=== PATIENT | male | born 1945 | race Caucasian/White ===

== ENCOUNTER 2018-07-19 15:40 | Inpatient (IN) | payer MEDICARE, OTHER ==
[2018-07-19 16:31] LABS: ADD MAN DIFF? NO
[2018-07-19 16:33] LABS: ABNORMAL IP MESSAGE 1; BASOPHILS % 0.5 % (0.0-2.0); EOSINOPHILS # 0.1 10^3/ul (0.0-0.5); EOSINOPHILS % 1.9 % (0.0-7.0); HEMATOCRIT 39.8 % (42.0-52.0); HEMOGLOBIN 12.8 g/dl (14.0-18.0); LYMPHOCYTES # 0.5 10^3/ul (0.8-2.9); LYMPHOCYTES % 9.3 % (15.0-51.0); MEAN CORPUSCULAR HEMOGLOBIN 30.3 pg (29.0-33.0); MEAN CORPUSCULAR HGB CONC 32.2 g/dl (32.0-37.0); MEAN CORPUSCULAR VOLUME 94.3 fl (82.0-101.0); MEAN PLATELET VOLUME 10.7 fl (7.4-10.4); MONOCYTE # 0.3 10^3/ul (0.3-0.9); MONOCYTES % 5.9 % (0.0-11.0); NEUTROPHIL # 4.7 10^3/ul (1.6-7.5); NEUTROPHILS % 81.9 % (39.0-77.0); PLATELET COUNT 285 10^3/UL (140-415); POSITIVE DIFF @See below; RED BLOOD COUNT 4.22 10^6/ul (4.70-6.10); RED CELL DISTRIBUTION WIDTH 13.6 % (11.5-14.5)
[2018-07-19 16:33] LABS: WHITE BLOOD COUNT 5.8 10^3/ul (4.8-10.8)
[2018-07-19] MEDS: IPRATROPIUM (NEB) 0.5 MG/2.5 ML AMP NEB (16:43)
[2018-07-19] MEDS: ALBUTEROL 0.083% (NEB) 2.5 MG/3 ML AMP NEB (16:44)
[2018-07-19 16:51] LABS: ANION GAP 14 (5-13); BLOOD UREA NITROGEN 38 mg/dl (7-20); CARBON DIOXIDE 24 mmol/L (21-31); CHLORIDE 106 mmol/L (97-110); CREATININE 1.78 mg/dl (0.61-1.24); GLUCOSE 96 mg/dl (70-220); POTASSIUM 4.8 mmol/L (3.5-5.1); SODIUM 144 mmol/L (135-144)
[2018-07-19 16:52] LABS: ALANINE AMINOTRANSFERASE 75 IU/L (13-69); ALBUMIN 4.3 g/dl (3.3-4.9); ALBUMIN/GLOBULIN RATIO 1.79; ALKALINE PHOSPHATASE 74 IU/L (42-121); ASPARTATE AMINO TRANSFERASE 55 IU/L (15-46); BILIRUBIN,INDIRECT 0.4 mg/dl (0-1.1); BILIRUBIN,TOTAL 0.4 mg/dl (0.2-1.3); CALCIUM 8.8 mg/dl (8.4-10.2); CREATINE KINASE 57 IU/L (23-200); TOTAL PROTEIN 6.7 g/dl (6.1-8.1)
[2018-07-19 16:56] LABS: INR 1.09; PROTIME 14.3 Sec (11.9-14.9); PT RATIO 1.1
[2018-07-19 16:57] LABS: PARTIAL THROMBOPLASTIN TIME 32.2 Sec (23.0-35.0)
[2018-07-19 17:04] LABS: B-TYPE NATRIURETIC PEPTIDE 5720 PG/ML (0-125); CK INDEX 3.8; CK-MB 2.15 ng/ml (0.0-2.4); TROPONIN-I 0.032 ng/ml (0.000-0.120)
[2018-07-19] MEDS: SOD CHLORIDE 0.9% 100 ML (17:46)
[2018-07-19] MEDS: IODIXANOL LOCM 100 ML BTL (17:47)
[2018-07-19 18:40] LABS: AMYLASE 88 U/L (11-123)
[2018-07-19 18:40] LABS: LIPASE 164 U/L (23-300)
[2018-07-19] MEDS: SOD CHLORIDE 0.9% 500 ML IV (18:56)
[2018-07-19] MEDS ORDERED: ONDANSETRON 4 MG INJ IV ×2 (19:00→19:30)
[2018-07-19] MEDS ORDERED: ACETAMINOPHEN 325 MG TAB PO ×2 (19:00→19:30)
[2018-07-19] MEDS ORDERED: HYDROCODONE/APAP (5/325) TAB PO ×2 (19:30)
[2018-07-19] MEDS ORDERED: DOCUSATE SODIUM 100 MG CAP PO (19:30)
[2018-07-19] MEDS ORDERED: NA PHOSPHATE/BIPHOS 133 ML ENEMA PR (19:30)
[2018-07-19] MEDS ORDERED: NITROGLYCERIN (SL) 0.4 MG TAB SL (19:30)
[2018-07-19] MEDS ORDERED: BISACODYL (EC) 5 MG TAB PO (19:30)
[2018-07-19] MEDS ORDERED: LORAZEPAM 0.5 MG TAB PO (19:30)
[2018-07-19] MEDS ORDERED: NACL 0.9% 3 ML SYG IV (19:30)
[2018-07-19] MEDS ORDERED: LEVALBUTEROL (HFA) 15 GM INHALER INH (20:00)
[2018-07-19] MEDS ORDERED: GLUCOSE GEL 15 GRAM TUBE BUCCAL (20:30)
[2018-07-19] MEDS ORDERED: GLUCOSE GEL 15 GRAM TUBE PO ×2 (20:30)
[2018-07-19] MEDS ORDERED: GLUCAGON 1 MG INJ IM (20:30)
[2018-07-19] MEDS ORDERED: DEXTROSE 50% 50 ML SYRINGE IV ×2 (20:30)
[2018-07-19] MEDS: IVABRADINE HCL 5 MG TABLET PO (21:00)
[2018-07-19] MEDS: INSULIN ASPART [NOVOLOG] 3 ML PEN SC (21:00)
[2018-07-19] MEDS: HEPARIN 5,000 UNIT/1 ML VIAL SC (22:04)
[2018-07-19] MEDS: EZETIMIBE 10 MG TAB PO (22:19)
[2018-07-19] MEDS: INSULIN GLARGINE [LANTus] (100 UNITS/ML) SYG SC (22:19)
[2018-07-19] MEDS: ACETYLCYSTEINE 600 MG CAP PO (22:50)
[2018-07-19] MEDS: FUROSEMIDE 20 MG INJ IV (22:50)
[2018-07-19] MEDS: morphine 2 MG INJ IV (23:28)
[2018-07-20] MEDS: ZOLPIDEM 5 MG TAB PO ×2 (01:16→21:45)
[2018-07-20 06:02] LABS: ADD MAN DIFF? NO
[2018-07-20 06:10] LABS: BASOPHILS % 0.4 % (0.0-2.0); EOSINOPHILS # 0.1 10^3/ul (0.0-0.5); EOSINOPHILS % 2.4 % (0.0-7.0); HEMATOCRIT 37.9 % (42.0-52.0); HEMOGLOBIN 11.8 g/dl (14.0-18.0); LYMPHOCYTES % 20.7 % (15.0-51.0); MEAN CORPUSCULAR HEMOGLOBIN 29.2 pg (29.0-33.0); MEAN CORPUSCULAR HGB CONC 31.1 g/dl (32.0-37.0); MEAN CORPUSCULAR VOLUME 93.8 fl (82.0-101.0); MONOCYTE # 0.4 10^3/ul (0.3-0.9); MONOCYTES % 8.4 % (0.0-11.0); NEUTROPHIL # 3.1 10^3/ul (1.6-7.5); NEUTROPHILS % 67.5 % (39.0-77.0); PLATELET COUNT 262 10^3/UL (140-415); RED BLOOD COUNT 4.04 10^6/ul (4.70-6.10); RED CELL DISTRIBUTION WIDTH 13.8 % (11.5-14.5)
[2018-07-20 06:10] LABS: WHITE BLOOD COUNT 4.6 10^3/ul (4.8-10.8)
[2018-07-20 06:33] LABS: CREATINE KINASE 30 IU/L (23-200)
[2018-07-20 06:43] LABS: B-TYPE NATRIURETIC PEPTIDE 4430 PG/ML (0-125)
[2018-07-20 06:45] LABS: ALANINE AMINOTRANSFERASE 68 IU/L (13-69); ALBUMIN 3.7 g/dl (3.3-4.9); ALBUMIN/GLOBULIN RATIO 1.54; ALKALINE PHOSPHATASE 64 IU/L (42-121); ANION GAP 12 (5-13); ASPARTATE AMINO TRANSFERASE 36 IU/L (15-46); BILIRUBIN,INDIRECT 0.4 mg/dl (0-1.1); BILIRUBIN,TOTAL 0.4 mg/dl (0.2-1.3); BLOOD UREA NITROGEN 38 mg/dl (7-20); CALCIUM 8.8 mg/dl (8.4-10.2); CARBON DIOXIDE 26 mmol/L (21-31); CHLORIDE 104 mmol/L (97-110); CHOL/HDL RATIO 3.6 RATIO; CHOLESTEROL 117 mg/dl (100-200); CK INDEX 4.1; CK-MB 1.23 ng/ml (0.0-2.4); CREATININE 2.02 mg/dl (0.61-1.24); GLUCOSE 99 mg/dl (70-220); HDL CHOLESTEROL 32 mg/dl (31-75); LDL CHOLESTEROL,CALCULATED 72 mg/dl; POTASSIUM 4.9 mmol/L (3.5-5.1); SODIUM 142 mmol/L (135-144); TOTAL PROTEIN 6.1 g/dl (6.1-8.1); TRIGLYCERIDES 65 mg/dl (0-149); TROPONIN-I 0.036 ng/ml (0.000-0.120)
[2018-07-20 06:52] LABS: FREE T4 (FREE THYROXINE) 1.42 ng/dl (0.78-2.44)
[2018-07-20 06:54] LABS: MAGNESIUM 2.1 mg/dl (1.7-2.5)
[2018-07-20 07:46] LABS: HEMOGLOBIN A1C 6.3 % (0-5.9)
[2018-07-20] MEDS: INSULIN ASPART [NOVOLOG] 3 ML PEN SC ×4 (07:52→21:00)
[2018-07-20] MEDS: NATEGLINIDE 120 MG TAB PO ×3 (08:22→17:28)
[2018-07-20] MEDS: AMIODARONE 200 MG TAB PO (08:24)
[2018-07-20] MEDS: CLOPIDOGREL 75 MG TAB PO (08:29)
[2018-07-20] MEDS: IVABRADINE HCL 5 MG TABLET PO ×2 (08:29→21:04)
[2018-07-20] MEDS: ASPIRIN (EC) 81 MG TAB PO (08:29)
[2018-07-20] MEDS: ALLOPURINOL 100 MG TAB PO (08:31)
[2018-07-20] MEDS: FINASTERIDE 5 MG TAB PO (08:32)
[2018-07-20] MEDS: ACETYLCYSTEINE 600 MG CAP PO ×2 (08:33→21:04)
[2018-07-20] MEDS: HEPARIN 5,000 UNIT/1 ML VIAL SC ×2 (08:43→21:06)
[2018-07-20 14:01] LABS: ADD UMIC NO; UR ASCORBIC ACID NEGATIVE (NEGATIVE); UR BILIRUBIN (Dip) NEGATIVE (NEGATIVE); UR BLOOD (Dip) NEGATIVE (NEGATIVE); UR CLARITY CLEAR (CLEAR); UR COLOR YELLOW (YELLOW); UR GLUCOSE (Dip) 3+ mg/dL (NEGATIVE); UR KETONES (Dip) NEGATIVE (NEGATIVE); UR LEUKOCYTE ESTERASE (Dip) NEGATIVE Leu/ul (NEGATIVE); UR NITRITE (Dip) NEGATIVE (NEGATIVE); UR SPECIFIC GRAVITY (Dip) 1.027 (1.003-1.030); UR TOTAL PROTEIN (Dip) NEGATIVE (NEGATIVE); UR UROBILINOGEN (Dip) NEGATIVE (NEGATIVE)
[2018-07-20 14:42] LABS: CREATININE,URINE RANDOM 103.83 mg/dl (20-370)
[2018-07-20 14:42] LABS: SODIUM,URINE RANDOM 80 mmol/L (30-90)
[2018-07-20] MEDS ORDERED: TAMSULOSIN (SR) 0.4 MG CAP PO (18:55)
[2018-07-20] MEDS: EZETIMIBE 10 MG TAB PO (21:05)
[2018-07-20] MEDS: INSULIN GLARGINE [LANTus] (100 UNITS/ML) SYG SC (21:06)
[2018-07-21] MEDS: INSULIN ASPART [NOVOLOG] 3 ML PEN SC ×4 (07:55→20:37)
[2018-07-21] MEDS: IVABRADINE HCL 5 MG TABLET PO ×2 (08:49→21:21)
[2018-07-21] MEDS: ASPIRIN (EC) 81 MG TAB PO (08:50)
[2018-07-21] MEDS: NATEGLINIDE 120 MG TAB PO ×3 (08:51→17:25)
[2018-07-21] MEDS: CLOPIDOGREL 75 MG TAB PO (08:51)
[2018-07-21] MEDS: FINASTERIDE 5 MG TAB PO (08:52)
[2018-07-21] MEDS: ALLOPURINOL 100 MG TAB PO (08:53)
[2018-07-21] MEDS: AMIODARONE 200 MG TAB PO (08:53)
[2018-07-21] MEDS: HEPARIN 5,000 UNIT/1 ML VIAL SC ×2 (09:13→20:18)
[2018-07-21 12:15] LABS: MAGNESIUM 2.2 mg/dl (1.7-2.5)
[2018-07-21 12:15] LABS: PHOSPHORUS 5.1 mg/dl (2.5-4.9)
[2018-07-21 12:26] LABS: ANION GAP 15 (5-13); BLOOD UREA NITROGEN 36 mg/dl (7-20); CALCIUM 8.9 mg/dl (8.4-10.2); CARBON DIOXIDE 21 mmol/L (21-31); CHLORIDE 106 mmol/L (97-110); CREATININE 1.86 mg/dl (0.61-1.24); GLUCOSE 88 mg/dl (70-220); POTASSIUM 4.7 mmol/L (3.5-5.1); SODIUM 142 mmol/L (135-144)
[2018-07-21 12:34] LABS: B-TYPE NATRIURETIC PEPTIDE 2450 PG/ML (0-125)
[2018-07-21] MEDS: ZOLPIDEM 5 MG TAB PO (20:15)
[2018-07-21] MEDS: EZETIMIBE 10 MG TAB PO (20:16)
[2018-07-21] MEDS: INSULIN GLARGINE [LANTus] (100 UNITS/ML) SYG SC ×2 (20:37→22:37)
[2018-07-22 05:58] LABS: ADD MAN DIFF? NO
[2018-07-22 06:13] LABS: BASOPHILS % 0.4 % (0.0-2.0); EOSINOPHILS # 0.2 10^3/ul (0.0-0.5); EOSINOPHILS % 3.1 % (0.0-7.0); HEMATOCRIT 38.6 % (42.0-52.0); HEMOGLOBIN 11.9 g/dl (14.0-18.0); LYMPHOCYTES % 20.2 % (15.0-51.0); MEAN CORPUSCULAR HEMOGLOBIN 29.7 pg (29.0-33.0); MEAN CORPUSCULAR HGB CONC 30.8 g/dl (32.0-37.0); MEAN CORPUSCULAR VOLUME 96.3 fl (82.0-101.0); MEAN PLATELET VOLUME 10.9 fl (7.4-10.4); MONOCYTE # 0.6 10^3/ul (0.3-0.9); MONOCYTES % 10.9 % (0.0-11.0); NEUTROPHIL # 3.3 10^3/ul (1.6-7.5); NEUTROPHILS % 64.6 % (39.0-77.0); PLATELET COUNT 256 10^3/UL (140-415); RED BLOOD COUNT 4.01 10^6/ul (4.70-6.10); RED CELL DISTRIBUTION WIDTH 13.7 % (11.5-14.5)
[2018-07-22 06:13] LABS: WHITE BLOOD COUNT 5.2 10^3/ul (4.8-10.8)
[2018-07-22 06:45] LABS: ANION GAP 11 (5-13); BLOOD UREA NITROGEN 32 mg/dl (7-20); CALCIUM 8.7 mg/dl (8.4-10.2); CARBON DIOXIDE 24 mmol/L (21-31); CHLORIDE 106 mmol/L (97-110); GLUCOSE 99 mg/dl (70-220); MAGNESIUM 2.3 mg/dl (1.7-2.5); PHOSPHORUS 4.8 mg/dl (2.5-4.9); POTASSIUM 5.3 mmol/L (3.5-5.1); SODIUM 141 mmol/L (135-144)
[2018-07-22] MEDS: INSULIN ASPART [NOVOLOG] 3 ML PEN SC ×2 (07:55→11:50)
[2018-07-22] MEDS: CLOPIDOGREL 75 MG TAB PO (08:27)
[2018-07-22] MEDS: FINASTERIDE 5 MG TAB PO (08:27)
[2018-07-22] MEDS: NATEGLINIDE 120 MG TAB PO ×2 (08:28→11:20)
[2018-07-22] MEDS: ALLOPURINOL 100 MG TAB PO (08:28)
[2018-07-22] MEDS: IVABRADINE HCL 5 MG TABLET PO (08:28)
[2018-07-22] MEDS: ASPIRIN (EC) 81 MG TAB PO (08:28)
[2018-07-22] MEDS: AMIODARONE 200 MG TAB PO (08:28)
[2018-07-22] MEDS: HEPARIN 5,000 UNIT/1 ML VIAL SC (08:34)
[2018-07-22] MEDS: FUROSEMIDE 20 MG TAB PO (10:54)
[2018-07-22] MEDS ORDERED: FUROSEMIDE 20 MG TAB PO (11:00)
[2018-07-22 11:19] LABS: POTASSIUM 4.5 mmol/L (3.5-5.1)
[2018-07-22] MEDS ORDERED: INSULIN GLARGINE [LANTus] (100 UNITS/ML) SYG SC (21:00)
== END 2018-07-22 15:25 | disposition home or self-care (01) | DRG 291 ==
LOC: E/R 15:40 → TEL 19:00
DX: I13.0 Hypertensive heart and chronic kidney disease with heart failure and stage 1 through stage 4 chronic kidney disease, or unspecified chronic kidney disease (principal); J96.01 Acute respiratory failure with hypoxia; K85.90 Acute pancreatitis without necrosis or infection, unspecified; I50.23 Acute on chronic systolic (congestive) heart failure; N17.9 Acute kidney failure, unspecified; Z95.0 Presence of cardiac pacemaker; Z95.810 Presence of automatic (implantable) cardiac defibrillator; Z87.891 Personal history of nicotine dependence; I25.10 Atherosclerotic heart disease of native coronary artery without angina pectoris; E78.5 Hyperlipidemia, unspecified; E11.9 Type 2 diabetes mellitus without complications; E79.0 Hyperuricemia without signs of inflammatory arthritis and tophaceous disease; Z95.5 Presence of coronary angioplasty implant and graft; Z95.3 Presence of xenogenic heart valve; N40.1 Benign prostatic hyperplasia with lower urinary tract symptoms; N18.3 Chronic kidney disease, stage 3 (moderate)
CPT/HCPCS: 71045; 71275; 80048; 80053; 80061; 81003; 82150; 82550; 82553; 82962; 83036; 83690; 83735; 83880; 84100; 84132; 84155; 84300; 84439; 84443; 84484; 85025; 85610; 85730; 87081; 93005; 94664; 99285-25; G0378

== ENCOUNTER 2018-08-05 21:44 | Observation (INO) | payer MEDICARE, OTHER ==
[2018-08-05 23:05] LABS: ADD MAN DIFF? NO
[2018-08-05 23:08] LABS: BASOPHIL # 0.1 10^3/ul (0.0-0.1); BASOPHILS % 0.8 % (0.0-2.0); EOSINOPHILS # 0.2 10^3/ul (0.0-0.5); EOSINOPHILS % 2.2 % (0.0-7.0); HEMATOCRIT 37.6 % (42.0-52.0); HEMOGLOBIN 11.8 g/dl (14.0-18.0); LYMPHOCYTES # 1.2 10^3/ul (0.8-2.9); LYMPHOCYTES % 15.7 % (15.0-51.0); MEAN CORPUSCULAR HEMOGLOBIN 29.5 pg (29.0-33.0); MEAN CORPUSCULAR HGB CONC 31.4 g/dl (32.0-37.0); MEAN PLATELET VOLUME 10.4 fl (7.4-10.4); MONOCYTE # 0.7 10^3/ul (0.3-0.9); NEUTROPHIL # 5.6 10^3/ul (1.6-7.5); NEUTROPHILS % 71.9 % (39.0-77.0); PLATELET COUNT 247 10^3/UL (140-415); RED CELL DISTRIBUTION WIDTH 13.5 % (11.5-14.5)
[2018-08-05 23:08] LABS: WHITE BLOOD COUNT 7.8 10^3/ul (4.8-10.8)
[2018-08-05 23:27] LABS: ALANINE AMINOTRANSFERASE 87 IU/L (13-69); ALBUMIN 3.9 g/dl (3.3-4.9); ALBUMIN/GLOBULIN RATIO 1.34; ALKALINE PHOSPHATASE 95 IU/L (42-121); ANION GAP 9 (5-13); ASPARTATE AMINO TRANSFERASE 84 IU/L (15-46); BILIRUBIN,INDIRECT 0.1 mg/dl (0-1.1); BILIRUBIN,TOTAL 0.1 mg/dl (0.2-1.3); BLOOD UREA NITROGEN 36 mg/dl (7-20); CALCIUM 9.1 mg/dl (8.4-10.2); CARBON DIOXIDE 21 mmol/L (21-31); CHLORIDE 108 mmol/L (97-110); CREATININE 1.62 mg/dl (0.61-1.24); GLUCOSE 87 mg/dl (70-220); INR 1.15; POTASSIUM 4.3 mmol/L (3.5-5.1); PROTIME 14.8 Sec (11.9-14.9); PT RATIO 1.2; SODIUM 138 mmol/L (135-144); TOTAL PROTEIN 6.8 g/dl (6.1-8.1)
[2018-08-05 23:38] LABS: B-TYPE NATRIURETIC PEPTIDE 5270 PG/ML (0-125); TROPONIN-I 0.024 ng/ml (0.000-0.120)
[2018-08-06] MEDS: FUROSEMIDE 20 MG INJ IV (00:23)
[2018-08-06] MEDS ORDERED: ZOLPIDEM 5 MG TAB PO (03:00)
[2018-08-06] MEDS ORDERED: NITROGLYCERIN (SL) 0.4 MG TAB SL (03:00)
[2018-08-06] MEDS ORDERED: BISACODYL (EC) 5 MG TAB PO (03:00)
[2018-08-06] MEDS ORDERED: LORAZEPAM 0.5 MG TAB PO (03:00)
[2018-08-06] MEDS ORDERED: NACL 0.9% 3 ML SYG IV (03:00)
[2018-08-06] MEDS ORDERED: ONDANSETRON 4 MG INJ IV (03:00)
[2018-08-06] MEDS ORDERED: DOCUSATE SODIUM 100 MG CAP PO (03:00)
[2018-08-06] MEDS ORDERED: GLUCAGON 1 MG INJ IM (04:00)
[2018-08-06] MEDS ORDERED: GLUCOSE GEL 15 GRAM TUBE PO ×2 (04:00)
[2018-08-06] MEDS ORDERED: DEXTROSE 50% 50 ML SYRINGE IV ×2 (04:00)
[2018-08-06] MEDS ORDERED: GLUCOSE GEL 15 GRAM TUBE BUCCAL (04:00)
[2018-08-06] MEDS: ACETAMINOPHEN 325 MG TAB PO (04:54)
[2018-08-06] MEDS: NATEGLINIDE 120 MG TAB PO ×2 (07:25→11:20)
[2018-08-06] MEDS: INSULIN ASPART [NOVOLOG] 3 ML PEN SC ×4 (07:45→21:00)
[2018-08-06] MEDS: IVABRADINE HCL 5 MG TABLET PO ×2 (07:47→18:30)
[2018-08-06] MEDS: FUROSEMIDE 20 MG TAB PO (08:10)
[2018-08-06] MEDS: ASPIRIN (EC) 81 MG TAB PO (08:10)
[2018-08-06] MEDS: FINASTERIDE 5 MG TAB PO (08:10)
[2018-08-06] MEDS: ALLOPURINOL 100 MG TAB PO (08:10)
[2018-08-06] MEDS: CLOPIDOGREL 75 MG TAB PO (08:10)
[2018-08-06] MEDS: AMIODARONE 200 MG TAB PO (08:11)
[2018-08-06] MEDS: HEPARIN 5,000 UNIT/1 ML VIAL SC ×2 (08:19→21:39)
[2018-08-06 15:25] LABS: ADD UMIC NO; UR ASCORBIC ACID NEGATIVE (NEGATIVE); UR BILIRUBIN (Dip) NEGATIVE (NEGATIVE); UR BLOOD (Dip) NEGATIVE (NEGATIVE); UR CLARITY CLEAR (CLEAR); UR COLOR STRAW (YELLOW); UR GLUCOSE (Dip) NEGATIVE (NEGATIVE); UR KETONES (Dip) NEGATIVE (NEGATIVE); UR LEUKOCYTE ESTERASE (Dip) NEGATIVE Leu/ul (NEGATIVE); UR NITRITE (Dip) NEGATIVE (NEGATIVE); UR TOTAL PROTEIN (Dip) NEGATIVE (NEGATIVE); UR UROBILINOGEN (Dip) NEGATIVE (NEGATIVE)
[2018-08-06 15:40] LABS: CREATININE,URINE RANDOM 39.17 mg/dl (20-370)
[2018-08-06 15:40] LABS: SODIUM,URINE RANDOM 139 mmol/L (30-90)
[2018-08-06] MEDS: EZETIMIBE 10 MG TAB PO (21:34)
[2018-08-06] MEDS: ZOLPIDEM 5 MG TAB PO (21:35)
[2018-08-06] MEDS: INSULIN GLARGINE [LANTus] (100 UNITS/ML) SYG SC (21:38)
[2018-08-07] MEDS: ACCU-CHEK XX (01:38)
[2018-08-07 06:02] LABS: ADD MAN DIFF? NO
[2018-08-07 06:16] LABS: BASOPHIL # 0.1 10^3/ul (0.0-0.1); BASOPHILS % 0.9 % (0.0-2.0); EOSINOPHILS # 0.2 10^3/ul (0.0-0.5); EOSINOPHILS % 3.5 % (0.0-7.0); HEMATOCRIT 40.5 % (42.0-52.0); HEMOGLOBIN 12.8 g/dl (14.0-18.0); LYMPHOCYTES # 1.4 10^3/ul (0.8-2.9); LYMPHOCYTES % 22.5 % (15.0-51.0); MEAN CORPUSCULAR HEMOGLOBIN 29.6 pg (29.0-33.0); MEAN CORPUSCULAR HGB CONC 31.6 g/dl (32.0-37.0); MEAN CORPUSCULAR VOLUME 93.8 fl (82.0-101.0); MEAN PLATELET VOLUME 10.2 fl (7.4-10.4); MONOCYTE # 0.6 10^3/ul (0.3-0.9); MONOCYTES % 9.9 % (0.0-11.0); NEUTROPHILS % 62.7 % (39.0-77.0); PLATELET COUNT 252 10^3/UL (140-415); RED BLOOD COUNT 4.32 10^6/ul (4.70-6.10); RED CELL DISTRIBUTION WIDTH 13.6 % (11.5-14.5)
[2018-08-07 06:16] LABS: WHITE BLOOD COUNT 6.4 10^3/ul (4.8-10.8)
[2018-08-07 06:20] LABS: HEMOGLOBIN A1C 6.5 % (0-5.9)
[2018-08-07 06:28] LABS: CREATINE KINASE 35 IU/L (23-200)
[2018-08-07 06:33] LABS: HDL CHOLESTEROL 35 mg/dl (31-75); LDL CHOLESTEROL,CALCULATED 89 mg/dl; TRIGLYCERIDES 88 mg/dl (0-149)
[2018-08-07 06:33] LABS: CHOLESTEROL 142 mg/dl (100-200)
[2018-08-07 06:36] LABS: ANION GAP 12 (5-13); BLOOD UREA NITROGEN 38 mg/dl (7-20); CALCIUM 9.3 mg/dl (8.4-10.2); CARBON DIOXIDE 26 mmol/L (21-31); CHLORIDE 104 mmol/L (97-110); GLUCOSE 96 mg/dl (70-220); MAGNESIUM 1.9 mg/dl (1.7-2.5); PHOSPHORUS 5.4 mg/dl (2.5-4.9); POTASSIUM 4.8 mmol/L (3.5-5.1); SODIUM 142 mmol/L (135-144)
[2018-08-07 06:40] LABS: B-TYPE NATRIURETIC PEPTIDE 2820 PG/ML (0-125); CK INDEX 4.1; CK-MB 1.44 ng/ml (0.0-2.4); TROPONIN-I 0.025 ng/ml (0.000-0.120)
[2018-08-07 06:44] LABS: FREE T4 (FREE THYROXINE) 1.36 ng/dl (0.78-2.44)
[2018-08-07] MEDS: INSULIN ASPART [NOVOLOG] 3 ML PEN SC ×2 (07:55→11:55)
[2018-08-07] MEDS: FUROSEMIDE 20 MG TAB PO (08:40)
[2018-08-07] MEDS: CLOPIDOGREL 75 MG TAB PO (08:40)
[2018-08-07] MEDS: FINASTERIDE 5 MG TAB PO (08:40)
[2018-08-07] MEDS: ASPIRIN (EC) 81 MG TAB PO (08:40)
[2018-08-07] MEDS: ALLOPURINOL 100 MG TAB PO (08:40)
[2018-08-07] MEDS: IVABRADINE HCL 5 MG TABLET PO (08:41)
[2018-08-07] MEDS: HEPARIN 5,000 UNIT/1 ML VIAL SC (08:48)
[2018-08-07 15:32] LABS: CREATININE, RANDOM URINE 39 mg/dL (20-320); MICROALBUMIN/CREATININE RATIO 26 (<30)
== END 2018-08-07 15:18 | disposition home or self-care (01) ==
LOC: TEL 23:50 → E/R 21:44
DX: I50.42 Chronic combined systolic (congestive) and diastolic (congestive) heart failure (principal); I12.9 Hypertensive chronic kidney disease with stage 1 through stage 4 chronic kidney disease, or unspecified chronic kidney disease; E11.22 Type 2 diabetes mellitus with diabetic chronic kidney disease; N18.2 Chronic kidney disease, stage 2 (mild); I25.10 Atherosclerotic heart disease of native coronary artery without angina pectoris; R00.2 Palpitations; E78.5 Hyperlipidemia, unspecified; E79.0 Hyperuricemia without signs of inflammatory arthritis and tophaceous disease; R07.9 Chest pain, unspecified; D29.1 Benign neoplasm of prostate; Z79.4 Long term (current) use of insulin; Z79.01 Long term (current) use of anticoagulants; Z95.810 Presence of automatic (implantable) cardiac defibrillator; Z95.5 Presence of coronary angioplasty implant and graft; Z79.82 Long term (current) use of aspirin; Z95.3 Presence of xenogenic heart valve; Z87.891 Personal history of nicotine dependence
CPT/HCPCS: 71045; 80048; 80053; 80061; 81003; 82043; 82550; 82553; 82962; 83036; 83735; 83880; 84100; 84155; 84300; 84439; 84443; 84484; 85025; 85610; 93005; 99285-25; G0378